=== PATIENT | male | born 1970 | race Caucasian/White ===

== ENCOUNTER → 2020-02-15 | Outpatient (CLI) | payer MEDICAID ==
[~2020-02-15] MED LIST: AMBIEN 10 MG TA10 MG PO; ASA81BEC PO; CATAPRES0.1 MG PO; CITRATE OF MAG296 ML PO; CLONIDINE HCL0.1 MG PO; DIAZEPAM 10 MG10 M1; GLUMETZA500; HYDROCODON-ACE1 EAC5; NEURONTIN 300M300 M2 PO; OXYCODONE HCL10 MG PO; SEROQUEL200 MG; TOPROL XL100 MG PO; ZOFRAN4 MG
== END ==
LOC: M.PC 09:54
PROVIDERS: ATTEND Physical Medicine & Rehabilitation
DX: R26.89 Other abnormalities of gait and mobility (principal); G62.9 Polyneuropathy, unspecified; M48.56XA Collapsed vertebra, not elsewhere classified, lumbar region, initial encounter for fracture; M51.17 Intervertebral disc disorders with radiculopathy, lumbosacral region; M47.816 Spondylosis without myelopathy or radiculopathy, lumbar region

== ENCOUNTER → 2020-02-27 | Outpatient (CLI) | payer MEDICAID | LOC: M.PC 09:11 | PROVIDERS: ATTEND Physical Medicine & Rehabilitation | DX: S32.810A Multiple fractures of pelvis with stable disruption of pelvic ring, initial encounter for closed fracture (principal); S32.019A Unspecified fracture of first lumbar vertebra, initial encounter for closed fracture; S32.049A Unspecified fracture of fourth lumbar vertebra, initial encounter for closed fracture; S32.059A Unspecified fracture of fifth lumbar vertebra, initial encounter for closed fracture; M47.26 Other spondylosis with radiculopathy, lumbar region; M51.17 Intervertebral disc disorders with radiculopathy, lumbosacral region; X58.XXXA Exposure to other specified factors, initial encounter; Y93.89 Activity, other specified; Y92.89 Other specified places as the place of occurrence of the external cause; Y99.8 Other external cause status ==

== ENCOUNTER → 2020-03-12 | Outpatient (CLI) | payer MEDICAID | END | disposition home or self-care (01) | LOC: M.PC 09:24 | PROVIDERS: ATTEND Physical Medicine & Rehabilitation | DX: M54.5 Low back pain (principal) ==

== ENCOUNTER → 2020-03-21 | Outpatient (CLI) | payer MEDICAID | END | disposition home or self-care (01) | LOC: M.PC 03-19 09:20 | PROVIDERS: ATTEND Physical Medicine & Rehabilitation | DX: M54.5 Low back pain (principal); M47.816 Spondylosis without myelopathy or radiculopathy, lumbar region; G89.29 Other chronic pain; M51.17 Intervertebral disc disorders with radiculopathy, lumbosacral region; M48.061 Spinal stenosis, lumbar region without neurogenic claudication; M79.605 Pain in left leg; M79.604 Pain in right leg; I10 Essential (primary) hypertension; E11.9 Type 2 diabetes mellitus without complications; Z98.890 Other specified postprocedural states; Z79.899 Other long term (current) drug therapy ==